=== PATIENT | male | born 1955 | race Hispanic/Latino ===

== ENCOUNTER → 2020-08-31 17:42 | Outpatient (CLI) | payer OTHER, SELFPAY ==
--- NOTE | 2020-08-31 | DI.RAD.S_ITS ---
PROCEDURE: XR CERVICAL SPINE 2V OR 3V INDICATIONS: Post Cervical Spinal Fusion TECHNIQUE: 3 view(s) of the cervical spine were acquired. COMPARISON: None. FINDINGS: Bones: No fractures or dislocations to the C7-T1 level. Patient is status post posterior fusion at C5 through T1 levels. No gross hardware loosening or failure. Slight reversal of normal cervical lordosis centered at C4-5 level is seen. Degenerative endplate changes are noted throughout cervical spine. The lateral masses of C1 appear intact on the odontoid view. No suspicious bony lesions. Soft tissues: No prevertebral soft tissue swelling. IMPRESSION: Post fusion changes at C5 through T1 levels with slight reversal of normal cervical lordosis. No acute fracture or dislocation. No gross hardware complication. Degenerative endplate changes noted throughout cervical spine. Dictated by: Moe Crowley M.D. on 09/01/2020 at 8:49 Approved by: Moe Crowley M.D. on 09/01/2020 at 9:03
== END ==
PROVIDERS: PCP Nurse Practitioner Family; Referring Provider Physician Assistant; Visit Provider Physician Assistant
DX: Z98.1 Arthrodesis status (principal)
CPT/HCPCS: 72040

== ENCOUNTER → 2020-09-30 16:17 | Outpatient (CLI) | payer OTHER, SELFPAY ==
--- NOTE | 2020-09-30 16:20 | DI.CT.S_ITS ---
PROCEDURE: CT CERVICAL SPINE WO CON INDICATIONS: Other spondylosis with radiculopathy, cervical reg TECHNIQUE: Noncontrast 3 mm thick sections acquired from the skull base to the T4 level. Sagittal and coronal reformats were then constructed. For radiation dose reduction, the following was used: automated exposure control, adjustment of mA and/or kV according to patient size. COMPARISON: [facility], CR, XR CERVICAL SPINE 2V OR 3V, 08/31/2020, 17:49. FINDINGS: Image quality: Excellent. Bones: No fractures or dislocations. Visualized superior ribs are intact. Posterior hardware is seen C5 through T1. The screws appear well placed. Vertical fixation rods are seen. No findings of hardware failure or hardware loosening are seen. There has been removal of portions of the posterior elements. Bone grafting material is noted. There is moderate to severe disc space narrowing seen at C3-C4, C4-C5, C5-C6, C6-C7, and C7-T1. At least moderate disc space narrowing is seen at C2-C3. At least partially bridging anterior osteophytes are seen C3 through C6. There is reversal of the normal cervical lordosis. No focal AP alignment abnormality is seen. Soft tissues: Prevertebral soft tissues are normal in thickness. No paravertebral hematomas. No apical pneumothoraces. IMPRESSION: Unremarkable hardware seen C5 through T1. Relatively prominent degenerative changes are seen. Dictated by: Remigio Li M.D. on 09/30/2020 at 15:53 Approved by: Remigio Li M.D. on 09/30/2020 at 15:56
== END ==
PROVIDERS: PCP Nurse Practitioner Family; Referring Provider Physician Assistant; Visit Provider Physician Assistant
DX: M47.22 Other spondylosis with radiculopathy, cervical region (principal)
CPT/HCPCS: 72125

== ENCOUNTER → 2021-02-21 09:59 | Outpatient (CLI) | payer OTHER, SELFPAY ==
--- NOTE | 2021-02-21 | DI.CT.S_ITS ---
PROCEDURE: CT CERVICAL SPINE WO CON INDICATIONS: post cervical spinal fusion TECHNIQUE: Noncontrast 3 mm thick sections acquired from the skull base to the T4 level. Sagittal and coronal reformats were then constructed. For radiation dose reduction, the following was used: automated exposure control, adjustment of mA and/or kV according to patient size. COMPARISON: [facility], CT, CT CERVICAL SPINE WO CON, 09/30/2020, 16:22. FINDINGS: Image quality: Excellent. Bones: No fractures or dislocations. Visualized superior ribs are intact. Postoperative hardware is again seen posteriorly C5 through T1. The screws appear well placed. Vertical fixation rods are seen. There has been removal of portions of the posterior elements. Bone grafting material is noted. Mild disc space narrowing is seen at C2-C3, with at least moderate disc space narrowing at C3-C4. Moderate to severe disc space narrowing seen at C4-C5, C5-C6, and C6-C7. Moderate disc space narrowing is seen at C7-T1. Focal degenerative change is seen involving the C1-C2 interface anteriorly. Mild reversal of the normal cervical lordosis is noted. No focal AP alignment abnormality is seen. Soft tissues: Prevertebral soft tissues are normal in thickness. No paravertebral hematomas. No apical pneumothoraces. IMPRESSION: Unremarkable postoperative change C5 through T1. Degenerative changes are seen throughout, which are worst inferiorly. Dictated by: Remigio Li M.D. on 02/21/2021 at 9:58 Approved by: Remigio Li M.D. on 02/21/2021 at 10:00
== END ==
PROVIDERS: PCP Nurse Practitioner Family; Referring Provider Neurological Surgery; Visit Provider Neurological Surgery
DX: M47.812 Spondylosis without myelopathy or radiculopathy, cervical region (principal); Z98.1 Arthrodesis status
CPT/HCPCS: 72125

== ENCOUNTER → 2022-09-15 13:02 | Outpatient (CLI) | payer OTHER, SELFPAY ==
--- NOTE | 2022-09-15 | DI.CT.S_ITS ---
PROCEDURE: CT CERVICAL SPINE WO CON INDICATIONS: Radiculopathy, cervical region S/P neck surgery TECHNIQUE: Noncontrast 3 mm thick sections acquired from the skull base to the T4 level. Sagittal and coronal reformats were then constructed. For radiation dose reduction, the following was used: automated exposure control, adjustment of mA and/or kV according to patient size. COMPARISON: [facility], CT, CT CERVICAL SPINE WO CON, 02/21/2021, 10:17. FINDINGS: Image quality: Excellent. Bones: Postsurgical changes from C5 through T1 posterior spinal fusion and laminectomy. The hardware appears intact without surrounding lucency. No fractures or dislocations. Redemonstration of degenerative changes of the cervical spine with facet and uncovertebral arthropathy, osteophytosis and intervertebral disc height loss. Visualized superior ribs are intact. Soft tissues: Prevertebral soft tissues are normal in thickness. No paravertebral hematomas. No apical pneumothoraces. Fluid collection within the posterior paraspinal soft tissues measuring 8.9 x 3.8 x 6.4 cm, previously 7.3 x 2.4 x 6.7 cm. IMPRESSION: 1. Fluid collection in the posterior paraspinal soft tissues likely correlates to patient history of bulging in neck. This likely represents a postoperative seroma. No definite connection to the spinal canal is seen, however evaluation is limited secondary to hardware artifact, pseudomeningocele is considered less likely but also in the differential. 2. Stable postsurgical changes from C5 through T1 posterior spinal fixation and laminectomy without interval complication. 3. Redemonstration of multilevel degenerative changes of the cervical spine. Dictated by: Michel Hassan M.D. on 09/15/2022 at 16:20 Approved by: Michel Hassan M.D. on 09/15/2022 at 16:25
== END ==
PROVIDERS: PCP Nurse Practitioner Family; Referring Provider Physician Assistant Medical; Visit Provider Physician Assistant Medical
DX: M47.22 Other spondylosis with radiculopathy, cervical region (principal); Z98.1 Arthrodesis status
CPT/HCPCS: 72125